=== PATIENT | female | born 1960 | race Caucasian/White ===

== ENCOUNTER 2019-07-13 21:13 | Emergency (ER) | payer OTHER ==
[~2019-07-13] VITALS: Ht 160 cm; Wt 92.1 kg
[2019-07-13 21:21] VITALS: Ht 160 cm; Wt 92.1 kg
[2019-07-13 22:17] LABS: BASOPHIL % 0.3 % (0-2); PLATELET COUNT 217 x10^3mcL (130-400); RED CELL DISTRIBUTION WIDTH 13.3 % (11.5-14.5)
[2019-07-13 22:33] LABS: CALCIUM 9.1 mg/dL (8.5-10.1); CARBON DIOXIDE 25.7 mmol/L (21-32); CHLORIDE SERUM 105 mmol/L (98-107); CREATININE SERUM 0.7 mg/dL (0.6-1.0); GFR1 > 60 mL/min; GLUCOSE SERUM 165 mg/dL (74-106); POTASSIUM SERUM 3.9 mmol/L (3.5-5.1); SODIUM SERUM 139 mmol/L (136-145)
[2019-07-13 22:45] LABS: ALBUMIN 3.7 g/dL (3.4-5.0); ALKALINE PHOSPHATASE 109 U/L (46-116); ALT/SGPT 65 U/L (14-59); AST/SGOT 34 U/L (15-37); BILIRUBIN TOTAL 0.23 mg/dL (0.20-1.00); CHOLESTEROL 179 mg/dL (<200); LIPASE 227 IU/L (73-393); T4(THYROXINE) 6.3 ug/dL (4.7-13.3); TOTAL PROTEIN, SERUM 7.2 g/dL (6.4-8.2)
[2019-07-13 22:46] LABS: HDL CHOLESTEROL 61 mg/dL (40-60)
[2019-07-13 22:56] LABS: microscopic required? NO
[2019-07-13 23:00] LABS: UA SPECIFIC GRAVITY <=1.005 (1.005-1.035); urine erythrocyte NEGATIVE (NEGATIVE)
[2019-07-13 23:21] LABS: AMPHETAMINE QUAL UR NONE DETECTED (See below)
[2019-07-14 00:42] VITALS: BP 143/88
== END 2019-07-14 00:42 | disposition home or self-care (01) ==
LOC: ED 21:13
PROVIDERS: Emergency Medicine
DX: H92.02 Otalgia, left ear (principal); E78.00 Pure hypercholesterolemia, unspecified; Z90.11 Acquired absence of right breast and nipple; Z87.891 Personal history of nicotine dependence; Z98.890 Other specified postprocedural states
CPT/HCPCS: 85378; J1885; Q9967

== ENCOUNTER 2020-01-26 14:45 | Inpatient (IN) | payer OTHER ==
[~2020-01-26] VITALS: Ht 162.6 cm; Wt 81.6 kg
[2020-01-26 15:12] VITALS: Ht 162.6 cm; Wt 81.6 kg
[2020-01-26 16:31] LABS: BASOPHIL % 0.3 % (0-2); PLATELET COUNT 231 x10^3mcL (130-400); RED CELL DISTRIBUTION WIDTH 12.8 % (11.5-14.5)
[2020-01-26 16:37] LABS: CALCIUM 9.7 mg/dL (8.5-10.1); CARBON DIOXIDE 22.8 mmol/L (21-32); CHLORIDE SERUM 103 mmol/L (98-107); CREATININE SERUM 1.1 mg/dL (0.6-1.0); GFR1 54 mL/min; GLUCOSE SERUM 166 mg/dL (74-106); POTASSIUM SERUM 3.5 mmol/L (3.5-5.1); SODIUM SERUM 141 mmol/L (136-145)
[2020-01-26 16:43] LABS: ALBUMIN 4.1 g/dL (3.4-5.0); ALKALINE PHOSPHATASE 129 U/L (46-116); ALT/SGPT 70 U/L (14-59); AST/SGOT 38 U/L (15-37); BILIRUBIN TOTAL 0.5 mg/dL (0.20-1.00); TOTAL PROTEIN, SERUM 7.5 g/dL (6.4-8.2)
[2020-01-26 18:06] LABS: microscopic required? NO
[2020-01-26 18:12] LABS: UA SPECIFIC GRAVITY 1.015 (1.005-1.035); urine erythrocyte NEGATIVE (NEGATIVE)
[2020-01-26 18:32] LABS: AMPHETAMINE QUAL UR NONE DETECTED (See below)
[2020-01-26 18:49] LABS: T3 TOTAL 1.07 ng/mL
[2020-01-26 18:52] LABS: FREE T4 0.85 ng/dL (0.76-1.46); FREE THYROXINE INDEX 1.9 ug/dL (1.4-4.5); T4(THYROXINE) 6.6 ug/dL (4.7-13.3)
[2020-01-26 19:11] LABS: CHOLESTEROL/HDL RATIO 3.2
[2020-01-26] MEDS ORDERED: TIROSINT25 MC1 PO (19:40)
[2020-01-26] MEDS ORDERED: QUETIAPINE FUM300 MG PO (19:41)
[2020-01-26] MEDS ORDERED: BENZTROPINE MESY1 MG PO (21:14)
[2020-01-26] MEDS ORDERED: ROPINIROLE HYDRO1 MG PO (21:15)
[2020-01-27 04:07] VITALS: BP 138/85
[2020-01-27 06:51] LABS: BASOPHIL % 0.3 % (0-2); PLATELET COUNT 194 x10^3mcL (130-400)
[2020-01-27 07:11] LABS: CALCIUM 9.1 mg/dL (8.5-10.1); CHLORIDE SERUM 107 mmol/L (98-107); CREATININE SERUM 0.8 mg/dL (0.6-1.0); GFR1 > 60 mL/min; GLUCOSE SERUM 123 mg/dL (74-106); MAGNESIUM 2.1 mg/dL (1.8-2.4); PHOSPHOROUS 3.7 mg/dL (2.5-4.9); POTASSIUM SERUM 3.2 mmol/L (3.5-5.1); SODIUM SERUM 141 mmol/L (136-145)
[2020-01-27 07:12] VITALS: BP 99/53
[2020-01-27 13:13] VITALS: BP 122/79
[2020-01-28 06:27] LABS: CALCIUM 9.9 mg/dL (8.5-10.1); CARBON DIOXIDE 26.1 mmol/L (21-32); CHLORIDE SERUM 106 mmol/L (98-107); CREATININE SERUM 0.9 mg/dL (0.6-1.0); GFR1 > 60 mL/min; GLUCOSE SERUM 138 mg/dL (74-106); SODIUM SERUM 141 mmol/L (136-145)
[2020-01-28 06:46] VITALS: BP 149/86
[2020-01-28 08:00] VITALS: BP 150/78
[2020-01-28 17:29] VITALS: BP 143/93
[2020-01-28 18:02] VITALS: BP 143/93
[2020-01-28 19:30] VITALS: BP 165/99
[2020-01-28 21:55] VITALS: BP 157/111
[2020-01-29 05:50] VITALS: BP 145/86
[2020-01-29] MEDS ORDERED: LIPI20 PO (08:02)
[2020-01-29] MEDS ORDERED: SEROQUEL200 MG PO (08:03)
[2020-01-29] MEDS ORDERED: COG1 PO (08:04)
[2020-01-29 10:10] VITALS: BP 124/78
[2020-01-29 10:36] VITALS: BP 124/78
== END 2020-01-29 11:55 | DRG 812 ==
LOC: ED 14:45 → DU 18:12 → MU 18:12 → DU 01-27 03:50 → MU 01-27 09:04
PROVIDERS: Emergency Medicine; Internal Medicine; ADMIT Internal Medicine
DX: T50.992A Poisoning by other drugs, medicaments and biological substances, intentional self-harm, initial encounter (principal); N17.0 Acute kidney failure with tubular necrosis; G92 Toxic encephalopathy; E78.5 Hyperlipidemia, unspecified; E03.9 Hypothyroidism, unspecified; R74.0 Nonspecific elevation of levels of transaminase and lactic acid dehydrogenase [LDH]; S05.8X1A Other injuries of right eye and orbit, initial encounter; E11.9 Type 2 diabetes mellitus without complications; F22 Delusional disorders; W06.XXXA Fall from bed, initial encounter; Y93.89 Activity, other specified; Y92.89 Other specified places as the place of occurrence of the external cause; Y99.8 Other external cause status; Z90.11 Acquired absence of right breast and nipple; Z85.3 Personal history of malignant neoplasm of breast; Z79.899 Other long term (current) drug therapy
CPT/HCPCS: 82962; 83880; 84439; G0378; G0480; J1815; J7030; Q0092; Q9967